=== PATIENT | female | born 1965 | race Caucasian/White ===

== ENCOUNTER → 2025-08-15 07:00 | Outpatient (REF) | payer BC, SELFPAY | LOC: HWWDC 07:00 | PROVIDERS: ATTENDING PHYSICIAN Nurse Practitioner Adult Health | DX: Z12.31 Encounter for screening mammogram for malignant neoplasm of breast (principal); M81.0 Age-related osteoporosis without current pathological fracture | CPT/HCPCS: 77063; 77067; 77080 ==